=== PATIENT | female | born 1990 | race Caucasian/White ===

== ENCOUNTER 2017-10-04 21:42 | Emergency (ER) | payer OTHER ==
[2017-10-04 21:57] VITALS: BP 113/68
[2017-10-04 23:02] LABS: APPEARANCE,URINE CLOUDY; BILIRUBIN,URINE NEGATIVE (NEGATIVE); COLOR,URINE RED; GLUCOSE, URINE NEGATIVE (NEGATIVE); KETONES,URINE 20 mg/dL (NEGATIVE); LEUKOCYTE ESTERASE,URINE SMALL (NEGATIVE); NITRITE,URINE NEGATIVE (NEGATIVE); PROTEIN,URINE >=500 mg/dL (NEGATIVE); URINE SPECIFIC GRAVITY 1.028; UROBILINOGEN,URINE NEGATIVE mg/dL (<2.0)
--- NOTE | 2017-10-04 23:11 | ER Document Report ---
ED General - General Chief Complaint: Urinary Problem Stated Complaint: URINARY PROBLEM Time Seen by Provider: 10/04/17 22:57 TRAVEL OUTSIDE OF THE [place] IN LAST 30 DAYS: No - Related Data Allergies/Adverse Reactions: No Known Allergies Allergy (Unverified 10/04/17 21:44) Past Medical History - Social History Smoking Status: Unknown if Ever Smoked Family History: Reviewed & Not Pertinent Patient has suicidal ideation: No Patient has homicidal ideation: No Renal/ Medical History: Denies: Hx Peritoneal Dialysis Review of Systems - Review of Systems Constitutional: No symptoms reported EENT: No symptoms reported Cardiovascular: No symptoms reported Respiratory: No symptoms reported Gastrointestinal: No symptoms reported Genitourinary: Dysuria, Hematuria Female Genitourinary: No symptoms reported Musculoskeletal: No symptoms reported Skin: No symptoms reported Hematologic/Lymphatic: No symptoms reported Neurological/Psychological: No symptoms reported Physical Exam - Vital signs Vitals: Temp Pulse Resp BP Pulse Ox 97.7 F 85 18 113/68 100 10/04/17 21:57 10/04/17 21:57 10/04/17 21:57 10/04/17 21:57 10/04/17 21:57 - General General appearance: Appears well, Alert - HEENT Head: Normocephalic, Atraumatic - Respiratory Respiratory status: No respiratory distress - Cardiovascular Rhythm: Regular Heart sounds: Normal auscultation Murmur: No - Abdominal Inspection: Normal Distension: No distension Bowel sounds: Normal - Mild TTP mid pelvic pain Course - Re-evaluation Re-evalutation: 10/04/17 23:09 Patient well-appearing urine consistent with urinary tract infection. Will provide Keflex and culture urine to ensure sensitivities. 10/04/17 23:10 No fevers chills or kidney stones to suggest concern for kidney stones at this time. - Vital Signs Vital signs: Temp Pulse Resp BP Pulse Ox 97.7 F 85 18 113/68 100 10/04/17 21:57 10/04/17 21:57 10/04/17 21:57 10/04/17 21:57 10/04/17 21:57 - Laboratory Laboratory results interpreted by me: 10/04/17 22:00 Urine Protein >=500 H Urine Ketones 20 H Urine Blood LARGE H Ur Leukocyte Esterase SMALL H Discharge - Discharge Clinical Impression: Urinary tract infection Qualifiers: Urinary tract infection type: site unspecified Hematuria presence: with hematuria Qualified Code(s): N39.0 - Urinary tract infection, site not specified Condition: Stable Disposition: HOME, SELF-CARE Instructions: Cephalexin ([facility]), Urinary Tract Infection, Child ([facility]) Prescriptions: Cephalexin [Keflex] 500 mg PO QID 5 Days #20 capsule
[2017-10-04] MEDS ORDERED: CEPHALEXIN 500 MG CAPSULE PO ONE (23:13)
== END 2017-10-04 23:25 | disposition home or self-care (01) ==
LOC: ER 21:42
DX: N39.0 Urinary tract infection, site not specified (principal); R30.0 Dysuria; R31.9 Hematuria, unspecified
CPT/HCPCS: 81001; 87086; 99283